=== PATIENT | male | born 1980 | race American Indian/Alaskan Native ===

== ENCOUNTER 2017-10-09 15:15 | Emergency (ER) | payer BC ==
[2017-10-09 15:24] VITALS: BP 145/98
[2017-10-09] MEDS ORDERED: TORADOL IM ONE (16:58)
--- NOTE | 2017-10-09 17:03 | Emergency Department Report ---
ED Back Pain/Injury HPI - General Chief Complaint: Back Pain/Injury Stated Complaint: LOWER BACK PAIN Time Seen by Provider: 10/09/17 16:56 Source: patient Limitations: No Limitations - History of Present Illness Initial Comments: Patient is a 36-year-old male with no significant past medical history. 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 Patient stated that his pain radiated down to his left thigh. Patient denied any weakness, numbness or tingling sensation. Patient is denying any bowel or bladder incontinence. MD Complaint: back pain, back injury - Related Data Allergies Allergy/AdvReac Type Severity Reaction Status Date / Time No Known Allergies Allergy Unverified 10/09/17 15:21 ED Review of Systems ROS: Stated complaint: LOWER BACK PAIN Other details as noted in HPI Comment: All other systems reviewed and negative Constitutional: denies: chills, fever Respiratory: denies: cough, orthopnea, shortness of breath, SOB with exertion Cardiovascular: denies: chest pain, palpitations Gastrointestinal: denies: abdominal pain, nausea, vomiting, diarrhea, constipation, hematemesis, melena, hematochezia Musculoskeletal: back pain Neurological: denies: headache, weakness, numbness, paresthesias, confusion ED Past Medical Hx - Past Medical History Previous Medical History?: No - Surgical History Additional Surgical History: hernia - Social History Smoking Status: Never Smoker Substance Use Type: Alcohol ED Physical Exam - General Limitations: No Limitations General appearance: alert, in no apparent distress - Head Head exam: Present: atraumatic, normocephalic, normal inspection - ENT ENT exam: Present: normal exam, normal orophraynx, mucous membranes moist - Neck Neck exam: Present: normal inspection, full ROM. Absent: tenderness, meningismus, lymphadenopathy, thyromegaly - Respiratory Respiratory exam: Present: normal lung sounds bilaterally. Absent: respiratory distress, wheezes, rales, rhonchi, stridor, chest wall tenderness, accessory muscle use, decreased breath sounds, prolonged expiratory - Cardiovascular Cardiovascular Exam: Present: regular rate, normal rhythm, normal heart sounds - GI/Abdominal GI/Abdominal exam: Present: soft, normal bowel sounds. Absent: distended, tenderness, guarding, rebound, rigid, organomegaly, mass, bruit, pulsatile mass , hernia - Extremities Exam Extremities exam: Present: normal inspection, full ROM, normal capillary refill - Back Exam Back exam: Present: normal inspection, full ROM. Absent: CVA tenderness (L) - Neurological Exam Neurological exam: Present: alert, oriented X3, CN II-XII intact, normal gait, reflexes normal - Skin Skin exam: Present: warm, intact, normal color ED Course Vital Signs 10/09/17 15:21 Temperature 98.3 F Pulse Rate 72 Respiratory 18 Rate Blood Pressure 145/98 O2 Sat by Pulse 96 Oximetry ED Medical Decision Making - Radiology Data Radiology results: report reviewed Referring Physician: WAYNE TOMLINSON Patient Name: AGUSTINA MELÉNDEZ Date of : 1980 Sex: Male Report Date: 2017-10-09 Report Status: Finalized Findings [facility] [address] [place] [address] XRay Report Signed Patient: AGUSTINA MELÉNDEZ MR#: [id number] : 1980 Acct:[id number] Age/Sex: 36 / M ADM Date: 10/09/17 Loc: ED Attending Dr: Ordering Physician: WAYNE TOMLINSON Date of Service: 10/09/17 Procedure(s): XR spine lumbosacral 2-3V Accession Number(s): [id number] cc: WAYNE TOMLINSON Fluoro Time In Minutes: FINAL REPORT EXAM: XR SPINE LUMBOSACRAL 2-3V HISTORY: BACK INJURY COMPARISON: None available. FINDINGS: Three views of the lumbar spine obtained. Lumbar vertebral body heights and disc heights are preserved. Straightening of the lumbar spine. Pedicles are intact. No spondylolisthesis. IMPRESSION: Lumbar vertebral body heights and disc heights are preserved. There is straightening of the normal lordotic curvature which may relate to patient positioning or muscle spasm. Transcribed By: LMA Dictated By: JESSE KHAN MD Electronically Authenticated By: JESSE KHAN MD Signed Date/Time: 10/09/171740 DD/ 40 TD/TT: 10/09/171740 Critical care attestation.: If time is entered above; I have spent that time in minutes in the direct care of this critically ill patient, excluding procedure time. ED Disposition Clinical Impression: Acute back pain, Lumbosacral pain Disposition: TO HOME OR SELFCARE Is pt being admited?: No Condition: Stable Instructions: Acute Low Back Pain (ED), Lumbar Radiculopathy (ED) Referrals: PRIMARY CARE, [Primary Care Provider] - 3-5 Days
--- NOTE | 2017-10-09 17:42 | XRay Report ---
FINAL REPORT EXAM: XR SPINE LUMBOSACRAL 2-3V HISTORY: BACK INJURY COMPARISON: None available. FINDINGS: Three views of the lumbar spine obtained. Lumbar vertebral body heights and disc heights are preserved. Straightening of the lumbar spine. Pedicles are intact. No spondylolisthesis. IMPRESSION: Lumbar vertebral body heights and disc heights are preserved. There is straightening of the normal lordotic curvature which may relate to patient positioning or muscle spasm.
== END 2017-10-09 17:57 | disposition home or self-care (01) ==
LOC: ED 15:15
DX: M54.5 Low back pain (principal)
CPT/HCPCS: 72100; 96372; 99283; J1885